=== PATIENT | male | born 2000 | race African-American/Black ===

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

== ENCOUNTER 2020-03-16 00:01 | Inpatient (IN) | payer OTHER ==
[~2020-03-16] VITALS: Ht 167.6 cm; Wt 57.0 kg
[2020-03-16 00:52] LABS: HEMATOCRIT 37.9 % (42.0-52.0); MEAN CORPUSCULAR HGB CONC 34.3 g/dl (32.0-36.5); MEAN CORPUSCULAR VOLUME 93.3 fl (80.0-96.0); PLATELET COUNT, AUTOMATED 269 10^3/uL (150-450); RED BLOOD COUNT 4.06 10^6/uL (4.30-6.10); WHITE BLOOD COUNT 8.6 10^3/uL (4.0-10.0)
[2020-03-16 01:27] LABS: ALBUMIN 3.8 GM/DL (3.2-5.2); ALT/SGPT 12 U/L (12-78); BILIRUBIN,DIRECT 0.2 MG/DL (0.0-0.2); BILIRUBIN,TOTAL 0.5 MG/DL (0.2-1.0); BLOOD UREA NITROGEN 11 MG/DL (7-18); CARBON DIOXIDE LEVEL 30 MEQ/L (21-32); CHLORIDE LEVEL 108 MEQ/L (98-107); CREATININE FOR GFR 0.98 MG/DL (0.70-1.30); ETHYL ALCOHOL (ETHANOL) < 0.003 % (0.000-0.010); GLUCOSE, FASTING 82 MG/DL (70-100); POTASSIUM SERUM 3.5 MEQ/L (3.5-5.1); SALICYLATE LEVEL 3.1 MG/DL (5.0-30.0); SODIUM LEVEL 141 MEQ/L (136-145)
[2020-03-16 02:52] LABS: AMPHETAMINES LEVEL URINE NEGATIVE (NEGATIVE); BARBITURATES URINE NEGATIVE (NEGATIVE); BENZODIAZEPINES URINE NEGATIVE (NEGATIVE); CANNABINOIDS URINE NEGATIVE (NEGATIVE); COCAINE METABOLITE URINE NEGATIVE (NEGATIVE); METHADONE URINE NEGATIVE (NEGATIVE); OPIATES URINE NEGATIVE (NEGATIVE); PHENCYCLIDINE URINE NEGATIVE (NEGATIVE)
--- NOTE | 2020-03-16 07:19 | ECGEPIP ---
[facility] - ED Test Date: 2020-03-16 Pat Name: JOSHUA GONZALEZ Department: Room: - Gender: Male Top Executive: DAVON : 2000 Requested By: TEJAL Llamas Order Number: [id number] Reading MD: Manjeet Tomas Measurements Intervals [place] Rate: 59 P: 40 NM: 158 QRS: 75 QRSD: 100 T: 47 QT: 391 QTc: 390 Interpretive Statements SINUS BRADYCARDIA WITH MARKED SINUS ARRHYTHMIA BENIGN EARLY REPOLARIZATION NO PRIORS FOR COMPARISON Electronically Signed on 03-16-2020 7:18:37 EST by Manjeet Tomas
[2020-03-16] MEDS ORDERED: traZODone 50 MG TAB PO PRN (16:15)
[2020-03-16] MEDS ORDERED: MOM 30ML SUSPENSION UDC PO PRN (16:15)
[2020-03-16] MEDS ORDERED: MAALOX 30 ML SUSP *UDC PO PRN (16:15)
[2020-03-16] MEDS ORDERED: ACETAMINOPHEN TAB 650MG DOSE (2X325MG) PO PRN (16:15)
[2020-03-16 17:32] VITALS: BP 133/89
[2020-03-17 06:35] VITALS: BP 112/81
--- NOTE | 2020-03-17 12:05 | HPEPDOC ---
[facility] Medical History & Physical Date of Admission Mar 16, 2020 Date of Service: Mar 17, 2020 Attending Physician: Bisi Daryb MD History and Physical CHIEF COMPLAINT: suicidal thoughts HISTORY OF PRESENT ILLNESS: SANDRA is a 19-year-old male with past medical history of depression, history of suicide attempt 2019 who was brought to [facility] after the patient has been having worsening depression and suicidal ideation. He states he has intermittent thoughts of hurting himself, no known plan. He has no new stressor in his life and is currently active duty soldier. He says his thoughts of hurting himself or becoming more frequent. He has associated tearfulness, loneliness. He denies feeling hopeless, having visual or auditory hallucinations, insomnia, denies decreased appetite for decreased motivation. On evaluation the patient's review of systems was negative. The patient states he finds pleasure in many things. On admission vital signs were stable and labs were unremarkable. He was admitted to inpatient mental health unit for unspecified depression, suicidal ideation. Note: The patient had an inpatient mental health admission in 2019 and was later discharged to follow up with behavioral health on [place] for depression, suicide attempt by cutting his forearm. He followed with them for a short time but was told he no longer needed follow up and he has not seen them in some time. He takes no antidepressive medications. REVIEW OF SYSTEMS: CONSTITUTIONAL: Denies lack of energy, unexplained weight gain or weight loss, loss of appetite, fever, night sweats EYES: Denies eye drainage, eye pain, visual changes, dry/irritated eye EARS, NOSE, MOUTH, THROAT: Denies difficulty hearing, ringing in ears, mouth sores, loose teeth, sore throat, facial numbness or pain NECK: Denies swollen glands CARDIOVASCULAR: Denies irregular heartbeat, racing heart, chest pains, swelling of feet or legs, pain in legs with walking RESPIRATORY: Denies shortness of breath, night sweats, wheezing, sputum production, oxygen at home, coughing up blood, cough lasting > 1 month GASTROINTESTINAL: Denies abdominal pain, constipation, bloody stool, diarrhea, heartburn, nausea, vomiting GENITOURINARY: Denies painful urination, bloody urine, frequent urination, urgency, leaking urine, impotence MUSCULOSKELETAL: Denies joint pain, muscle pain, leg swelling INTEGUMENTARY: Denies rash, itching, new skin lesion, change in existing skin lesion, hair loss or increase, breast changes. NEUROLOGICAL: Denies headaches, dizziness, difficulty walking, numbness or ti ngling PSYCHIATRIC: Denies depression, anxiety, recurrent bad thoughts, mood swings, hallucinations PAST MEDICAL HISTORY: 1. Depression 2. Hx of suicidal thoughts, suicide attempt PAST SURGICAL HISTORY: None FAMILY HISTORY: Father: Healthy. Alive Mother: Healthy. Alive SOCIAL HISTORY: Denies smoking, drinking or illicit drug use. [facility] [place] [facility] [address] 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 ALLERGIES: Please see below. HOME MEDICATIONS: Please see below. PHYSICAL EXAMINATION: VS: Please see below CONSTITUTIONAL: No acute distress, resting comfortably, AAO x 3 EYES: PERRLA, EOM intact HENT, MOUTH: Normocephalic, atraumatic, moist mucous membranes, NECK: SUPPLE, no JVD, no lymphadenopathy, no carotid bruit CV: Regular rate and rhythm, S1S2 normal, no murmurs/rubs/gallops RESPIRATORY: Clear to auscultation bilaterally, no rales/rhonchi/wheezes GI: BS positive in 4 quadrants, soft, nontender, nondistended, no rebound or guarding, no organomegaly : Deferred MUSCULOSKELETAL: Normal ROM. No cyanosis, clubbing, swelling, joint deformity, extremity edema INTEGUMENTARY: Intact, no rashes, no lesions, no erythema NEUROLOGIC: Cranial Nerves II-XII are intact, no focal deficits PSYCHIATRIC: Mood and affect are normal LABORATORY DATA: Please see below IMAGING: None ASSESSMENT: 19 y/o M with PMH of depression and hx of suicide attempt [facility] depressive disorder, suicidal ideations. PLAN: 1. Unspecified depressive disorder, suicidal ideations. Plan per psychiatry team. DISPOSITION: Thank you kindly for this consult. At this time will sign off. If we are needed to reassess again, please do not hesitate to call at any time. Vital Signs Vital Signs Date Time Temp Pulse Resp B/P (MAP) Pulse Ox O2 Delivery O2 Flow Rate FiO2 03/17/20 06:35 98.4 74 12 112/81 (91) 99 Room Air Home Medications No Active Prescriptions or Reported Meds Allergies Coded Allergies: No Known Allergies (Unverified , 06/19/18) A-FIB/CHADSVASC A-FIB History Current/History of A-Fib/PAF?: No Current PO Anticoag Therapy: No Age/Risk Factor Scoring CHADSVASC: CHADSVASC Response (Comments) Value Age Risk Factor Age < 65 years old 0 Gender Risk Factor Male 0 Hx of CHF No 0 Hx of HTN No 0 Hx of Stroke/TIA/or VTE No 0 Hx of Diabetes No 0 Hx of Vascular Disease No 0 Total 0 Treatment Treatment ordered: NONE Other anticoagulant ordered: none Bisi Darby MD Mar 17, 2020 12:04
[2020-03-17] MEDS ORDERED: SERTRALINE HCL 25 MG TABLET PO ONE (12:30)
--- NOTE | 2020-03-17 12:36 | MHHPEPDOC ---
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 Patient's friend had reported that patient may have taken an overdose of medications, but patient denied taking any meds when he was asked. Police noted several bottles of medications on the floor but pills were in them. Patient states that he said to his friend that he "has no reason to be alive." He admits that he had suicidal ideation but no planning. He denies any stressors in the interview with me. Patient had had a prior admission to this facility after he cut himself, he was admitted 08/05/18-08/07/18. He is seen at [facility]. He states he has not current medications. Psychiatric Review of Systems Depression (2 or more weeks): depressed mood, anhedonia, insomnia/hypersomnia (can't get to sleep), feelings of worthlesness (hopelessness, helplessness), difficulty concentrating, suicidal thoughts Psychosis: denies PTSD: denies Anxiety: situational anxiety, stressor related anxiety Anxiety/ 6 months or more of: difficulty concentrating, sleep disturbance Past Psychiatric History Previous Psychiatric Diagnosis: depression and anxiety Previous Psychiatric Admissions: 08/05/18- cut himself, was admitted to [facility] at [facility] Suicide Attempts: cut himself, history of ideation Psychiatric Follow-up: [facility] Psychiatric medications: States none Past Medical History Medical Problems States no medical problems Head Injury: No Seizures: No Hospitalizations: Yes Surgeries: No Family Medical/Psychiatric HX Psychiatric Disorders: No Addiction: No Suicide Attemps/Completions: No Addiction History denies Social History Childhood: Born in [place], [place]. Grew up with his mother (parents never ) and 3 sisters and 1 brother Abuse/Trauma: Denies Current Living Situation: [facility] Education: High School Graduate Employment: Active Duty, is a cook Social Support: Mother Legal: Denies Marital: Single, never , no children Hobbies: Video games Mental Status Examination General Appearance: well groomed, appears stated age, hospital scubs/clothing Build: thin Demeanor: withdrawn, guarded Eye Contact: avoidant Activity: slowed Behavior: withdrawn Speech: clear, low in volume Mood: depressed Affect: constricted Thought Process: logical/linear Thought Content (Delusions): none reported Thought Content (Other): none reported Thought Content (Aggressive): none reported Perception (Hallucinations): none reported Perception (Other): none reported Cognition (Impairment of): none reported Cognition(Intelligence Est.): average Oriented: Awake, Alert, Oriented times three Insight: fair Judgment: Fair Psychosis: Denies Diagnoses Major Depressive Disorder, Recurrent, Mild Unspecified Anxiety Disorder A-FIB/CHADSVASC A-FIB History Current/History of A-Fib/PAF?: No Assessment Admit to [facility], patient denies current SI/HI but appears mildly withdrawn and very guarded. Denies depression, but observed with depressed mood and affect He is agreeable to Zoloft, we will titrate to therapeutic level and discharge when he is stable. Initial Treatment Plan 1. Patient was admitted on a [9.39] status. 2. Complete history was obtained. 3. With patients permission, family will be contacted and database will be expanded. 4. Patients medication regimen will be reviewed and changed accordingly. 5. Patient will be provided with protected environment. 6. Patient will be treated with individual, group, and milieu therapies. 7. Patient will receive supportive psych-education. 8. Discharge planning will commence immediately. 9. Outpatient follow-up treatment will be strongly recommended. 10. The initial treatment plan will focus initially on: * Depression. * Risk for suicide. ESTIMATED LENGTH OF STAY: 3-5 DAYS. TIME SPENT COUNSELING AND COORDINATING INITIAL CARE: 50 minutes. Vital Signs Vital Signs Date Time Temp Pulse Resp B/P (MAP) Pulse Ox O2 Delivery O2 Flow Rate FiO2 03/17/20 06:35 98.4 74 12 112/81 (91) 99 Room Air Medications No Active Prescriptions or Reported Meds Allergies Coded Allergies: No Known Allergies (Unverified , 06/19/18) BRIANA LIMA NP Mar 17, 2020 12:21
[2020-03-17 18:04] VITALS: BP 131/81
[2020-03-18 06:26] VITALS: BP 140/76
--- NOTE | 2020-03-18 10:29 | MHIPNPDOC ---
[facility] Progress Note Progress Note DATE OF SERVICE: 03/18/20 Subjective HPI: Ahsan presents today for check in. Patient is fairly guarded and does not engage in any discussion. Patient denies suicidal thoughts but does not describe any stressors or other events. MEDICATIONS: Patient endorses taking Zoloft. Objective Affective: Dysthmic, constricted, poor eye contact Behavior: Guarded. Speech: Soft. TC: Denies SI,HI, AH or VH Judgement: Intact as evidenced by decision making in the recent past. Insight: poor insight into symptoms and treatment options. Assessment F33.8 Other recurrent depressive disorders Plan Continue sertraline 25 mg daily. Still fairly guarded, concerned that this lack of engagement represents concealed depressive symptoms or worse suicidal thoughts. Vital Signs Vital Signs Date Time Temp Pulse Resp B/P (MAP) Pulse Ox O2 Delivery O2 Flow Rate FiO2 03/18/20 06:26 98.4 75 16 140/76 (97) Room Air 03/17/20 06:35 99 Current Medications Current Medications Medications (Trade) Dose Ordered Sig/Dinorah Route PRN Reason Start Time Stop Time Status Last Admin Dose Admin Acetaminophen (Tylenol Tab) 650 mg Q6HP PRN PO HEADACHE or DISCOMFORT 03/16/20 16:15 Al Hydrox/Mg Hydrox/Simethicone (Mylanta) 30 ml Q4HP PRN PO HEARTBURN/INDIGESTION 03/16/20 16:15 Home Med (Med Rec Complete!) ASDIRECTED XX 03/16/20 02:15 03/16/20 02:04 DC Magnesium Hydroxide (Milk Of Magnesia) 30 ml DAILYPRN PRN PO CONSTIPATION 03/16/20 16:15 Sertraline HCl (Zoloft) 25 mg DAILY PO 03/18/20 09:00 Trazodone HCl (Desyrel) 50 mg QHSP PRN PO INSOMNIA 03/16/20 16:15 Allergies Coded Allergies: No Known Allergies (Unverified , 06/19/18) MONTSERRAT FLEMING DO Mar 18, 2020 10:29
[2020-03-18] MEDS: SERTRALINE HCL 25 MG TABLET PO SCH (11:26)
[2020-03-18 16:25] VITALS: BP 133/64
[2020-03-19 06:28] VITALS: BP 137/74
[2020-03-19] MEDS: SERTRALINE HCL 25 MG TABLET PO SCH (09:21)
--- NOTE | 2020-03-19 09:44 | MHIPNPDOC ---
[facility] Progress Note Progress Note DATE OF SERVICE: 03/19/20 Subjective Copy HPI: Ahsan was met with again today. He still is quite dysthymic, constricted, and engages very little in the interview. He states to not feel depressed, however, he looks quite depressed with poor eye contact. He reports taking Sertraline without any problems and was managed to be coaxed into going to group for a short time. Objective Copy Appearance: Poor eye contact. Fair hygiene. Affect: Dysthymic. Constricted. Speech: Soft. Muted. Cognition: Grossly intact. Thought Form: Linear and goal directed. Thought Content: No thoughts of self harm. No evidence of aggressive or homicidal ideation. No evidence of delusions. No evidence of suicidal ideation. Judgement: Poor. Insight: Poor. Assessment Copy F33.9 Major depressive disorder, recurrent, unspecified Plan Copy Continue Sertraline 25 mg daily. He may need long-term treatment as he appears to be quite dysthymic, likely st ill depressed, and trying to conceal some symptoms. Vital Signs Vital Signs Date Time Temp Pulse Resp B/P (MAP) Pulse Ox O2 Delivery O2 Flow Rate FiO2 03/19/20 06:28 98.9 69 12 137/74 (95) Room Air 03/17/20 06:35 99 Current Medications Current Medications Medications (Trade) Dose Ordered Sig/Dinorah Route PRN Reason Start Time Stop Time Status Last Admin Dose Admin Acetaminophen (Tylenol Tab) 650 mg Q6HP PRN PO HEADACHE or DISCOMFORT 03/16/20 16:15 Al Hydrox/Mg Hydrox/Simethicone (Mylanta) 30 ml Q4HP PRN PO HEARTBURN/INDIGESTION 03/16/20 16:15 Home Med (Med Rec Complete!) ASDIRECTED XX 03/16/20 02:15 03/16/20 02:04 DC Magnesium Hydroxide (Milk Of Magnesia) 30 ml DAILYPRN PRN PO CONSTIPATION 03/16/20 16:15 Sertraline HCl (Zoloft) 25 mg DAILY PO 03/18/20 09:00 03/19/20 09:21 Trazodone HCl (Desyrel) 50 mg QHSP PRN PO INSOMNIA 03/16/20 16:15 Allergies Coded Allergies: No Known Allergies (Unverified , 06/19/18) MONTSERRAT FLEMING DO Mar 19, 2020 09:44
[2020-03-20 06:27] VITALS: BP 120/67
[2020-03-20] MEDS: SERTRALINE HCL 25 MG TABLET PO SCH (10:05)
[2020-03-20 16:00] VITALS: BP 120/70
[2020-03-21 06:45] VITALS: BP 113/71
[2020-03-21] MEDS: SERTRALINE HCL 50 MG TAB PO SCH (09:56)
[2020-03-21 18:47] VITALS: BP 113/71
[2020-03-22 06:51] VITALS: BP 123/57
[2020-03-22] MEDS: SERTRALINE HCL 50 MG TAB PO SCH (09:39)
--- NOTE | 2020-03-22 09:40 | MHIPNPDOC ---
[facility] Progress Note Progress Note DATE OF SERVICE: 03/22/20 HISTORY: The patient is met with today, he is but the majority of the day inside of his room with little interaction with others. He reports that he is "fine" but generally doesn't engage in much of the discussion relating to stressors that brought him, other than yielding that his suicidal thoughts have abated he doesn't engage much else. He has been noticed to come out from time to time but generally does not go to groups or engage in any interactions with others. VITAL SIGNS: See below. NEW TEST RESULTS: None. CURRENT MEDICATIONS: See below. MENTAL STATUS EXAMINATION: General: [Well dressed with good hygiene] Speech: Fluid Thought processes: [Linear and logical] Thought content: Guarded Abstract reasoning, and computation: [Intact] Description of associations: [Intact] Description of abnormal or psychotic thoughts:[Denies any suicidal or homicidal ideation. Denies any auditory or visual hallucinations. Does not appear to be responding to internal stimuli. Does not appear to be endorsing any bizarre or paranoid ideation.] Judgment: Poor Insight: Poor Orientation: [Alert and orientated 3] Recent and remote memory: [Intact] Attention span and concentration: [Intact] Fund of knowledge: [Adequate] Mood: "Fine" Affect: Dysthymic, flat DIAGNOSES: 1. Unspecified depressive disorder. 2. . 3. . ASSESSMENT: The patient appears to be making little progress on the Zoloft, it's not clear whether his difficulties with others are chronic such as a personality disorder or whether a product of severe depression. We'll have another point of reference as he reports interacting with very few other people in his work and social life. He reports himself to not be a "people person" which is not clear as to whether this is chronic or representing a more significant depression. Even his behavior being so isolative and unusual I would postulate that's more likely depression or another major mental health disorder at this time. MANAGEMENT PLAN: Will increase sertraline to 75 mg daily, continue to encourage patient to engage in groups and to interact with the milieu as much as possible. TIME SPENT: 15 minutes. Vital Signs Vital Signs Date Time Temp Pulse Resp B/P (MAP) Pulse Ox O2 Delivery O2 Flow Rate FiO2 03/22/20 06:51 98.6 82 16 123/57 (79) 99 Room Air Current Medications Current Medications Medications (Trade) Dose Ordered Sig/Dinorah Route PRN Reason Start Time Stop Time Status Last Admin Dose Admin Acetaminophen (Tylenol Tab) 650 mg Q6HP PRN PO HEADACHE or DISCOMFORT 03/16/20 16:15 Al Hydrox/Mg Hydrox/Simethicone (Mylanta) 30 ml Q4HP PRN PO HEARTBURN/INDIGESTION 03/16/20 16:15 Home Med (Med Rec Complete!) ASDIRECTED XX 03/16/20 02:15 03/16/20 02:04 DC Magnesium Hydroxide (Milk Of Magnesia) 30 ml DAILYPRN PRN PO CONSTIPATION 03/16/20 16:15 Sertraline HCl (Zoloft) 25 mg DAILY PO 03/18/20 09:00 03/20/20 20:36 DC 03/20/20 10:05 Sertraline HCl (Zoloft) 50 mg DAILY PO 03/21/20 09:00 03/22/20 09:39 Trazodone HCl (Desyrel) 50 mg QHSP PRN PO INSOMNIA 03/16/20 16:15 Allergies Coded Allergies: No Known Allergies (Unverified , 06/19/18) MONTSERRAT FLEMING DO Mar 22, 2020 09:40
--- NOTE | 2020-03-22 13:14 | MHIPN ---
DATE: 03/20/2020 VITAL SIGNS: Blood pressure 120/67, pulse 89, temperature 99.2. CHIEF COMPLAINT: Says feels okay. Seen for follow-up. He is seen in the company of staff. Says he has been doing okay, moods have been better, he says he has been sleeping okay. Appetite is better, feels less anxious. Says has felt down for the last couple of weeks or so, and that he felt down in a somewhat similar fashion last year. MENTAL STATUS EXAM: He is neat. He is cooperative, though possibly a bit guarded, but no very spontaneous. He is coherent. No agitation. No psychomotor retardation. Affect is restricted in range. He denies active suicidal thoughts, intents. No homicidal ideas or intents. Currently no evidence of any psychosis. Cognition is intact. Judgment and insight remain compromised, but possibly improved. ASSESSMENT: Unspecified depressive disorder. PLAN: I suggest increasing the Prozac to 50 mg daily to help with his mood. Continue current care and observation. MERCEDES
[2020-03-22 16:45] VITALS: BP 127/77
[2020-03-23 06:26] VITALS: BP 121/69
[2020-03-23] MEDS: SERTRALINE HCL 50 MG TAB PO SCH (09:22)
[2020-03-23] MEDS: PILL CUTTER 1 EACH XX PRN (09:22)
--- NOTE | 2020-03-23 09:54 | MHIPNPDOC ---
[facility] Progress Note Progress Note DATE OF SERVICE: 03/23/20 HISTORY: the patient is met with today, he reports that he is doing well without any major promise. He is notably more able to smile and reports that he is f eeling better in terms of his depression, upon pressing he does state that he feels less anxious and less worried about things. He reports that he's feeling improved on the sertraline, he is open to sign a release to speak to someone the know some better as he is fairly isolative and shy, and it's unclear if this is related to depression or personality. VITAL SIGNS: See below. NEW TEST RESULTS: None. CURRENT MEDICATIONS: See below. MENTAL STATUS EXAMINATION: General: [Well dressed with good hygiene] Speech: Fluid Thought processes: [Linear and logical] Thought content: less guarded Abstract reasoning, and computation: [Intact] Description of associations: [Intact] Description of abnormal or psychotic thoughts:[Denies any suicidal or homicidal ideation. Denies any auditory or visual hallucinations. Does not appear to be responding to internal stimuli. Does not appear to be endorsing any bizarre or paranoid ideation.] Judgment: improved Insight: improved Orientation: [Alert and orientated 3] Recent and remote memory: [Intact] Attention span and concentration: [Intact] Fund of knowledge: [Adequate] Mood: "Fine" Affect: more reactive DIAGNOSES: 1. Unspecified depressive disorder. 2. . 3. . ASSESSMENT: it's unclear whether the patient's shyness is related to his personality, although he does appear to be improving slowly but surely on the Zoloft. It's likely he does have some form of depression that is improving, will attempt to get more collateral information MANAGEMENT PLAN: continue sertraline 75 mg daily, CANDELARIO to be signed for friend TIME SPENT: 15 minutes. Vital Signs Vital Signs Date Time Temp Pulse Resp B/P (MAP) Pulse Ox O2 Delivery O2 Flow Rate FiO2 03/23/20 06:26 98.8 94 18 121/69 (86) 100 Room Air Current Medications Current Medications Medications (Trade) Dose Ordered Sig/Dinorah Route PRN Reason Start Time Stop Time Status Last Admin Dose Admin Acetaminophen (Tylenol Tab) 650 mg Q6HP PRN PO HEADACHE or DISCOMFORT 03/16/20 16:15 Al Hydrox/Mg Hydrox/Simethicone (Mylanta) 30 ml Q4HP PRN PO HEARTBURN/INDIGESTION 03/16/20 16:15 Home Med (Med Rec Complete!) ASDIRECTED XX 03/16/20 02:15 03/16/20 02:04 DC Magnesium Hydroxide (Milk Of Magnesia) 30 ml DAILYPRN PRN PO CONSTIPATION 03/16/20 16:15 Sertraline HCl (Zoloft) 25 mg DAILY PO 03/18/20 09:00 03/20/20 20:36 DC 03/20/20 10:05 Sertraline HCl (Zoloft) 50 mg DAILY PO 03/21/20 09:00 03/22/20 12:43 DC 03/22/20 09:39 Sertraline HCl (Zoloft) 75 mg DAILY PO 03/23/20 09:00 03/23/20 09:22 Trazodone HCl (Desyrel) 50 mg QHSP PRN PO INSOMNIA 03/16/20 16:15 Allergies Coded Allergies: No Known Allergies (Unverified , 06/19/18) MONTSERRAT FLEMING DO Mar 23, 2020 09:54
[2020-03-23 16:08] VITALS: BP 132/79
[2020-03-24 06:26] VITALS: BP 120/63
[2020-03-24] MEDS: PILL CUTTER 1 EACH XX PRN (08:12)
[2020-03-24] MEDS: SERTRALINE HCL 50 MG TAB PO SCH (08:13)
--- NOTE | 2020-03-24 10:44 | MHIPNPDOC ---
[facility] Progress Note Progress Note DATE OF SERVICE: 03/24/20 HISTORY: the patient has been doing better, he reports he is feeling improved on the medication, he describes that he is more interactive and feels less ambi valent around others. He is notably more active on the unit command was or more frequently and engaging more often in groups. He reports he is tolerating the medication well VITAL SIGNS: See below. NEW TEST RESULTS: None. CURRENT MEDICATIONS: See below. MENTAL STATUS EXAMINATION: General: [Well dressed with good hygiene] Speech: Fluid Thought processes: [Linear and logical] Thought content: less guarded Abstract reasoning, and computation: [Intact] Description of associations: [Intact] Description of abnormal or psychotic thoughts:[Denies any suicidal or homicidal ideation. Denies any auditory or visual hallucinations. Does not appear to be responding to internal stimuli. Does not appear to be endorsing any bizarre or paranoid ideation.] Judgment: improved Insight: improved Orientation: [Alert and orientated 3] Recent and remote memory: [Intact] Attention span and concentration: [Intact] Fund of knowledge: [Adequate] Mood: "Fine" Affect: more euthymic DIAGNOSES: 1. Unspecified depressive disorder. ASSESSMENT: it seems to be that the patient likely has some significant depression that is slowly resolving, will likely be ready for discharge this coming Sunday when he is eligible to be discharged MANAGEMENT PLAN: Increase Zoloft to 100 Milgram's daily TIME SPENT: 15 minutes. Vital Signs Vital Signs Date Time Temp Pulse Resp B/P (MAP) Pulse Ox O2 Delivery O2 Flow Rate FiO2 03/24/20 06:26 98.6 93 18 120/63 (82) 99 Room Air Current Medications Current Medications Medications (Trade) Dose Ordered Sig/Dinorah Route PRN Reason Start Time Stop Time Status Last Admin Dose Admin Acetaminophen (Tylenol Tab) 650 mg Q6HP PRN PO HEADACHE or DISCOMFORT 03/16/20 16:15 Al Hydrox/Mg Hydrox/Simethicone (Mylanta) 30 ml Q4HP PRN PO HEARTBURN/INDIGESTION 03/16/20 16:15 Home Med (Med Rec Complete!) ASDIRECTED XX 03/16/20 02:15 03/16/20 02:04 DC Magnesium Hydroxide (Milk Of Magnesia) 30 ml DAILYPRN PRN PO CONSTIPATION 03/16/20 16:15 Sertraline HCl (Zoloft) 25 mg DAILY PO 03/18/20 09:00 03/20/20 20:36 DC 03/20/20 10:05 Sertraline HCl (Zoloft) 50 mg DAILY PO 03/21/20 09:00 03/22/20 12:43 DC 03/22/20 09:39 Sertraline HCl (Zoloft) 75 mg DAILY PO 03/23/20 09:00 03/24/20 08:13 Trazodone HCl (Desyrel) 50 mg QHSP PRN PO INSOMNIA 03/16/20 16:15 Allergies Coded Allergies: No Known Allergies (Unverified , 06/19/18) MONTSERRAT FLEMING DO Mar 24, 2020 10:44
[2020-03-24 16:00] VITALS: BP 116/65
[2020-03-25 06:24] VITALS: BP 118/71
[2020-03-25] MEDS: SERTRALINE HCL 50 MG TAB PO SCH (08:29)
[2020-03-25 17:37] VITALS: BP 125/81
[2020-03-26 06:47] VITALS: BP 125/65
[2020-03-26] MEDS: SERTRALINE HCL 50 MG TAB PO SCH (08:17)
--- NOTE | 2020-03-26 09:51 | MHIPNPDOC ---
[facility] Progress Note Progress Note DATE OF SERVICE: 03/26/20 HISTORY: The patient is met with today, he reports he is doing well and making progress, he is notably more engaged and talkative. He reports that he is feeli ng better he is notably in the milieu talking and going to groups, no longer isolating. He reports that he's feeling much better on the Zoloft at this time. VITAL SIGNS: See below. NEW TEST RESULTS: None. CURRENT MEDICATIONS: See below. MENTAL STATUS EXAMINATION: General: [Well dressed with good hygiene] Speech: Fluid Thought processes: [Linear and logical] Thought content: less guarded Abstract reasoning, and computation: [Intact] Description of associations: [Intact] Description of abnormal or psychotic thoughts:[Denies any suicidal or homicidal ideation. Denies any auditory or visual hallucinations. Does not appear to be responding to internal stimuli. Does not appear to be endorsing any bizarre or paranoid ideation.] Judgment: Fair Insight: Fair Orientation: [Alert and orientated 3] Recent and remote memory: [Intact] Attention span and concentration: [Intact] Fund of knowledge: [Adequate] Mood: "Fine" Affect: Euthymic DIAGNOSES: 1. Unspecified depressive disorder. ASSESSMENT: Patient appears to be making great progress, likely discharge this coming Sunday MANAGEMENT PLAN: Continue Zoloft at 100 mg daily TIME SPENT: 15 minutes. Vital Signs Vital Signs Date Time Temp Pulse Resp B/P (MAP) Pulse Ox O2 Delivery O2 Flow Rate FiO2 03/26/20 06:47 97.9 74 16 125/65 (85) 99 Room Air Current Medications Current Medications Medications (Trade) Dose Ordered Sig/Dinorah Route PRN Reason Start Time Stop Time Status Last Admin Dose Admin Acetaminophen (Tylenol Tab) 650 mg Q6HP PRN PO HEADACHE or DISCOMFORT 03/16/20 16:15 Al Hydrox/Mg Hydrox/Simethicone (Mylanta) 30 ml Q4HP PRN PO HEARTBURN/INDIGESTION 03/16/20 16:15 Home Med (Med Rec Complete!) ASDIRECTED XX 03/16/20 02:15 03/16/20 02:04 DC Magnesium Hydroxide (Milk Of Magnesia) 30 ml DAILYPRN PRN PO CONSTIPATION 03/16/20 16:15 Sertraline HCl (Zoloft) 25 mg DAILY PO 03/18/20 09:00 03/20/20 20:36 DC 03/20/20 10:05 Sertraline HCl (Zoloft) 50 mg DAILY PO 03/21/20 09:00 03/22/20 12:43 DC 03/22/20 09:39 Sertraline HCl (Zoloft) 75 mg DAILY PO 03/23/20 09:00 03/24/20 14:08 DC 03/24/20 08:13 Sertraline HCl (Zoloft) 100 mg DAILY PO 03/25/20 09:00 03/26/20 08:17 Trazodone HCl (Desyrel) 50 mg QHSP PRN PO INSOMNIA 03/16/20 16:15 Allergies Coded Allergies: No Known Allergies (Unverified , 06/19/18) MONTSERRAT FLEMING DO Mar 26, 2020 09:51
[2020-03-26 17:39] VITALS: BP 138/82
[2020-03-27 06:40] VITALS: BP 109/64
[2020-03-27] MEDS: SERTRALINE HCL 50 MG TAB PO SCH (08:18)
[2020-03-27 16:09] VITALS: BP 132/72
[2020-03-28 06:28] VITALS: BP 112/68
[2020-03-28] MEDS: SERTRALINE HCL 50 MG TAB PO SCH (08:59)
[2020-03-28 16:05] VITALS: BP 121/81
[2020-03-29 06:22] VITALS: BP 114/75
[2020-03-29] MEDS ORDERED: SERTRALINE 100 MG TAB PO SCH (09:00)
--- NOTE | 2020-03-29 10:28 | MHIPNPDOC ---
[facility] Progress Note Progress Note DATE OF SERVICE: 03/29/20 HISTORY: . VITAL SIGNS: See below. NEW TEST RESULTS: . CURRENT MEDICATIONS: See below. MENTAL STATUS EXAMINATION: Patient is a -year old male, who is . Speech: Is . Language skills are . Thought processes including: . Thought content: . Abstract reasoning, and computation: . Description of assoc iations: . Description of abnormal or psychotic thoughts: . Judgment: . Insight: [very limited, good, fair. poor]. Orientation: . Recent and remote memory: . Attention span and concentration: . Language: . Fund of knowledge: . Mood: . Affect: . DIAGNOSES: 1. . 2. . 3. . ASSESSMENT: MANAGEMENT PLAN: . TIME SPENT: minutes. Vital Signs Vital Signs Date Time Temp Pulse Resp B/P (MAP) Pulse Ox O2 Delivery O2 Flow Rate FiO2 03/29/20 06:22 98.1 86 16 114/75 (88) 03/28/20 16:05 99 Room Air Current Medications Current Medications Medications (Trade) Dose Ordered Sig/Dinorah Route PRN Reason Start Time Stop Time Status Last Admin Dose Admin Acetaminophen (Tylenol Tab) 650 mg Q6HP PRN PO HEADACHE or DISCOMFORT 03/16/20 16:15 Al Hydrox/Mg Hydrox/Simethicone (Mylanta) 30 ml Q4HP PRN PO HEARTBURN/INDIGESTION 03/16/20 16:15 Home Med (Med Rec Complete!) ASDIRECTED XX 03/16/20 02:15 03/16/20 02:04 DC Magnesium Hydroxide (Milk Of Magnesia) 30 ml DAILYPRN PRN PO CONSTIPATION 03/16/20 16:15 Sertraline HCl (Zoloft) 25 mg DAILY PO 03/18/20 09:00 03/20/20 20:36 DC 03/20/20 10:05 Sertraline HCl (Zoloft) 50 mg DAILY PO 03/21/20 09:00 03/22/20 12:43 DC 03/22/20 09:39 Sertraline HCl (Zoloft) 75 mg DAILY PO 03/23/20 09:00 03/24/20 14:08 DC 03/24/20 08:13 Sertraline HCl (Zoloft) 100 mg DAILY PO 03/25/20 09:00 03/28/20 09:02 DC 03/28/20 08:59 Sertraline HCl (Zoloft) 100 mg DAILY PO 03/29/20 09:00 03/29/20 08:43 Trazodone HCl (Desyrel) 50 mg QHSP PRN PO INSOMNIA 03/16/20 16:15 Allergies Coded Allergies: No Known Allergies (Unverified , 06/19/18) MONTSERRAT FLEMING DO Mar 29, 2020 10:28
[2020-03-29] MEDS ORDERED: SERT-138 PO (10:38)
--- NOTE | 2020-03-30 18:52 | MHDSPDOC ---
[facility] Discharge Summary Discharge Summary DATE OF ADMISSION: Mar 16, 2020 at 16:04 DATE OF DISCHARGE: Mar 29, 2020 at 12:40 DISCHARGE DIAGNOSES: Major depressive disorder, recurrent, in full remission CONSULTANTS INVOLVED:[ None (basic hospitalist screening)] REASON FOR ADMISSION & TREATMENT AND PROGRESS ON THE UNIT : The patient was admitted to the inpatient mental health unit with depression and anxiety. He had had suicidal thoughts that had brought him to the unit, initially he was quite ambivalent about interacting I sling to his room and an impressive amount, he was started on Zoloft titrated up to a total of 100 mg, which produces stained results, he became much improved engaging and began to interact with others being gregarious in social. Collateral information revealed likely depression in behavioral changes prior as well as isolation, patient improved very well without any major problem and was social and amenable on discharge. DISCHARGE ASSESSMENT[improved] Legal status considerations: The patient at the time of discharge did not meet criteria for involuntary admission/extension due to having a [normal] mental status exam, [fair] insight into the situation, They are engaged in the discharge process, as well as being friendly and amenable in behavioral control and havent been engaging in any observed concerning behavior or ideation recently. They decline voluntary extension/admission at this time and must be discharged in good cristhian, as Im unable to make a case for holding the patient against their will. They may have historical risk factors of admissions and other interactions with psychiatry however, those are not modifiable from a clinical perspective. The patient will need to be discharged in good cristhian. MENTAL STATUS EXAMINATION ON DISCHARGE: [General: Well dressed with good hygiene Speech: Spontaneous and fluid Thought processes: Linear and logical Thought content: Future orientated Abstract reasoning, and computation: Intact Description of associations: Intact Description of abnormal or psychotic thoughts:Denies any suicidal or homicidal ideation. Denies any auditory or visual hallucinations. Does not appear to be responding to internal stimuli. Does not appear to be endorsing any bizarre or paranoid ideation. Judgment: fair Insight: fair Orientation: Alert and orientated 3 Recent and remote memory: Intact Attention span and concentration: Intact Fund of knowledge: Adequate Mood: "glad to get out of here" Affect: Euthymic with a full range] PLAN/FOLLOWUP ARRANGEMENTS: Follow up appointments made (PCP and MH in 5 days of D/C date) and safety plan completed. Safety Planning aspects completed prior to discharge [Medication supplies limited to 7 days with 4 refills to prevent accumulation to OD] [RN reviewed crisis hotline information and other aspects to empower patient to access care in interim before next appointment.] The amount of time spent in the coordination of care for this patient was approximately 30 minutes. Vital Signs/I&Os Vital Signs Date Time Temp Pulse Resp B/P (MAP) Pulse Ox O2 Delivery O2 Flow Rate FiO2 03/29/20 06:22 98.1 86 16 114/75 (88) 03/28/20 16:05 99 Room Air Medications Scheduled Sertraline HCl (Sertraline HCl) 100 Mg Tablet, 100 MG PO DAILY for mood for 7 Days, #7 Allergies Coded Allergies: No Known Allergies (Unverified , 06/19/18) MONTSERRAT FLEMING DO Mar 30, 2020 18:52
== END 2020-03-29 12:40 | disposition home or self-care (01) | DRG 885 ==
LOC: M ED 00:01 → M ED INP 16:04 → M PSY 18:12
PROVIDERS: ADMIT Psychiatry & Neurology Addiction Medicine; ATTEND Psychiatry & Neurology Addiction Medicine
DX: F33.9 Major depressive disorder, recurrent, unspecified (principal); F41.9 Anxiety disorder, unspecified; Z20.828 Contact with and (suspected) exposure to other viral communicable diseases

== ENCOUNTER 2020-09-16 13:07 | Emergency (ER) | payer OTHER ==
[~2020-09-16] VITALS: Ht 167.6 cm; Wt 64.0 kg
[~2020-09-16 13:07] MED LIST: SERT-138 PO
[2020-09-16 15:50] LABS: BASO % 0.9 % (0.0-1.0); EOS % 0.9 % (0.0-3.0); HEMATOCRIT 40.4 % (42.0-52.0); HEMOGLOBIN 13.7 g/dl (13.5-17.5); LYMPH # 2.2 10^3/uL (1.5-5.0); LYMPH % 46.2 % (24.0-44.0); MEAN CORPUSCULAR HEMOGLOBIN 33.1 pg (27.0-33.0); MEAN CORPUSCULAR HGB CONC 33.9 g/dl (32.0-36.5); MEAN CORPUSCULAR VOLUME 97.6 fl (80.0-96.0); MONO # 0.4 10^3/uL (0.0-0.8); MONO % 7.5 % (2.0-8.0); NEUTROPHILS # 2.1 10^3/uL (1.5-8.5); NEUTROPHILS % 44.3 % (36.0-66.0); PLATELET COUNT, AUTOMATED 270 10^3/uL (150-450); RED BLOOD COUNT 4.14 10^6/uL (4.30-6.10); WHITE BLOOD COUNT 4.7 10^3/uL (4.0-10.0)
[2020-09-16 16:30] LABS: ALBUMIN 3.9 GM/DL (3.2-5.2); ALT/SGPT 25 U/L (12-78); BILIRUBIN,DIRECT 0.3 MG/DL (0.0-0.2); BILIRUBIN,TOTAL 0.8 MG/DL (0.2-1.0); BLOOD UREA NITROGEN 7 MG/DL (7-18); CALCIUM LEVEL 8.7 MG/DL (8.5-10.1); CARBON DIOXIDE LEVEL 30 MEQ/L (21-32); CHLORIDE LEVEL 108 MEQ/L (98-107); CK-MB VALUE MASS < 1.0 NG/ML (<3.6); CPK CREATINE PHOSPHOKINASE 1335 U/L (39-308); CREATININE FOR GFR 0.99 MG/DL (0.70-1.30); FREE T4 0.79 NG/DL (0.78-1.33); GLUCOSE, FASTING 76 MG/DL (70-100); LIPASE 28 U/L (73-393); MB/CK RELATIVE INDEX 0.07 (< OR =4); POTASSIUM SERUM 3.9 MEQ/L (3.5-5.1); SODIUM LEVEL 141 MEQ/L (136-145); THYROID STIMULATING HORMONE 0.957 uIU/ML (0.463-3.98); TROPONIN I < 0.02 NG/ML (< 0.10)
[2020-09-16] MEDS ORDERED: NS 1,000 ML IV ONE (16:35)
--- NOTE | 2020-09-16 16:47 | REP ---
INDICATION: chest discomfort. COMPARISON: None. FINDINGS: The superior mediastinal structures are midline. The cardiac silhouette is unremarkable in size, shape, and position. The diaphragmatic surfaces of the lungs are regular, and the costophrenic angles are clear. The pulmonary quevedo are clear. The imaged osseous structures are intact. IMPRESSION: There is no acute cardiopulmonary disease. <Electronically signed by Randy Prince > 09/16/20 1710
[2020-09-16 17:49] VITALS: BP 131/88
== END 2020-09-16 18:08 | disposition home or self-care (01) ==
LOC: M ED 13:07
DX: E86.0 Dehydration (principal); R10.30 Lower abdominal pain, unspecified; J45.909 Unspecified asthma, uncomplicated; F41.9 Anxiety disorder, unspecified; F33.9 Major depressive disorder, recurrent, unspecified

== ENCOUNTER 2020-09-22 01:03 | Emergency (ER) | payer OTHER ==
[~2020-09-22] VITALS: Ht 167.6 cm; Wt 61.7 kg
--- NOTE | 2020-09-22 03:31 | REPVR ---
PROCEDURE INFORMATION: Exam: XR Right Hand Exam date and time: 09/22/2020 2:43 AM Age: 19 years old Clinical indication: Pain; Hand; Right; Additional info: Trauma TECHNIQUE: Imaging protocol: XR Right hand. Views: 3 or more views. COMPARISON: No relevant prior studies available. FINDINGS: Bones/joints: No fracture. No dislocation. Joint spaces are preserved. Soft tissues: Normal. IMPRESSION: No acute fracture. Electronically signed by: Arjun Velez On 09/22/2020 03:31:23 AM
[2020-09-22 07:12] VITALS: BP 112/85
== END 2020-09-22 07:14 | disposition home or self-care (01) ==
LOC: M ED 01:03
DX: S60.221A Contusion of right hand, initial encounter (principal); W22.8XXA Striking against or struck by other objects, initial encounter; Y92.018 Other place in single-family (private) house as the place of occurrence of the external cause; F33.9 Major depressive disorder, recurrent, unspecified; F41.9 Anxiety disorder, unspecified